=== PATIENT | female | born 1990 | race Caucasian/White ===

== ENCOUNTER 2021-01-16 23:00 | Observation (INO) | payer MEDICAID ==
[~2021-01-16] VITALS: Ht 152.4 cm; Wt 86.6 kg
[2021-01-17] MEDS ORDERED: LACTATED RINGERS 1,000 ML IV SCH
[2021-01-17] MEDS ORDERED: PREN1COM12 MT (05:14)
== END 2021-01-17 05:35 | disposition home or self-care (01) ==
LOC: 8 EST LDRP 23:00
PROVIDERS: ADMIT Obstetrics & Gynecology; ATTEND Obstetrics & Gynecology
DX: O62.9 Abnormality of forces of labor, unspecified (principal); Z3A.37 37 weeks gestation of pregnancy
CPT/HCPCS: 59025; 96360; 96361; G0378; 99281